=== PATIENT | female | born 1975 | race American Indian/Alaskan Native ===

== ENCOUNTER 2016-12-30 18:12 | Inpatient (IN) | payer OTHER ==
[2016-12-30 19:55] LABS: BASO # 0.1 K/uL (0.0-0.2); EOS # 0.4 K/uL (0.0-0.7); EOS % 5.2 % (0.0-4.0); HEMOGLOBIN 10.7 g/dL (12.0-16.0); LYMPH # 1.8 K/uL (1.0-4.3); LYMPH % 25.5 % (20.0-40.0); MEAN CORPUSCULAR HEMOGLOBIN 28.5 pg (27.0-31.0); MEAN CORPUSCULAR HGB CONC 33.2 g/dL (33.0-37.0); MEAN PLATELET VOLUME 10.3 fl (7.2-11.7); MONO # 0.6 K/uL (0.0-0.8); MONO % 7.8 % (0.0-10.0); NEUT # 4.3 K/uL (1.8-7.0); NEUT % 60.5 % (50.0-75.0); NRBC % 0.1 % (0.0-0.0); RBC 3.74 Mil/uL (3.80-5.20); RED CELL DISTRIBUTION WIDTH 13.4 % (11.5-14.5); WHITE BLOOD COUNT 7.1 K/uL (4.8-10.8)
[2016-12-30 20:08] LABS: ALT/SGPT 35 U/L (9-52); AST/SGOT 35 U/L (14-36); BILIRUBIN,DIRECT 0.2 mg/ml (0.0-0.4); BLOOD UREA NITROGEN 14 mg/dl (7-17); CALCIUM 8.5 mg/dL (8.4-10.2); GFR AFRICAN-AMERICAN > 60; GFR NON-AFRICAN AMERICAN > 60; URIC ACID 6.6 mg/Dl (2.2-7.5)
[2016-12-30 20:40] LABS: SQUAMOUS EPITHIAL 5 /hpf (0-5); URINE BACTERIA OCC (<OCC); URINE BILIRUBIN NEGATIVE (NEGATIVE); URINE BLOOD NEGATIVE (NEGATIVE); URINE CLARITY SLIGHTY-CLOUDY (Clear); URINE COLOR YELLOW (YELLOW); URINE GLUCOSE (UA) NEG (Normal); URINE HYALINE CAST >20 /hpf (0-2); URINE LEUKOCYTE ESTERASE NEG Leu/uL (Negative); URINE NITRATE NEGATIVE (NEGATIVE); URINE PROTEIN >=500 mg/dL (NEGATIVE); URINE UROBILINOGEN 0.2-1.0 mg/dL (0.2-1.0)
[2016-12-30 20:45] LABS: ALB/GLOB RATIO 0.9 (1.0-2.1)
[2016-12-30 20:49] LABS: INR 0.8 (0.9-1.2); PARTIAL THROMBOPLASTIN TIME 27.4 Seconds (25.6-37.1); PROTHROMBIN TIME 9.5 Seconds (9.8-13.1)
--- NOTE | 2016-12-30 21:27 | OBHP ---
Datetime: 12/30/2016 21:20 IP Adm Impression: , intrauterine ; No Active Labor; Intact Membranes IP Admit Plan: Admit to unit; Initiate labor induction protocol Admit Comment, IP Provider: The patient is a 41-year-old 1 para 0 estimated gestational age 36 weeks. Patient went to PMD's office and was noted to have elevated blood pressure. The cora ent was referred to [facility] FOR EVALUATION. PATIENT DENIES ANY HEADACHE BLURRED VISION ABDOMINA L PAIN. PATIENT REPORTS SWELLING OF THE LOWER EXTREMITIES 3 POUND WEIGHT GAIN. PATIENT REPORTS GOOD F ETAL MOVEMENT NO VAGINAL BLEEDING contractions OR LEAKAGE OF FLUID PAST MEDICAL HISTORY ASTHMA MEDICATIONS PULMICORT NO KNOWN DRUG ALLERGIES SOCIAL HISTORY DENIES ALCOHOL TOBACCO USE NOTED KNOWN DRUG ALLERGIES OBSTETRICAL HISTORY IVF PATIENT DENIES HEADACHE CHEST PAIN SHORTNESS OF BREATH PALPITATIONS NAUSEA VOMITING DIARRHEA CONST IPATION VAGINAL BLEEDING DYSURIA HEAT OR COLD INTOLERANCE SHE'S BRUISABILITY MUSCULOSKELETAL HILLS T ROCAR NEUROLOGICAL COMPLAINTS VITAL SIGNS STABLE AFEBRILE PHYSICAL EXAM SEE NOTES INTRAUTERINE AT 36 WEEKS ELEVATED BLOOD PRESSURE, PROTEINURIA MFM CONSULTATION OBTAINED AND RECOMMENDATION FOR DELIVERY MADE THE PATIENT TO GET STEROIDS, WILL MONITOR BLOOD PRESSURE, PATIENT TO BE STARTED ON LABETALOL 200 M G BY MOUTH 3 TIMES A DAY. WE DISCUSSED THE PLAN OF CARE WITH PATIENT THE PATIENT WAS INFORMED OF THE RISK OF PREMATURITY, RESPIRATORY ISSUES, POOR FEEDING, JAUNDICE AND UNFORESEEN COMPLICATION AFTER THO ROUGH DISCUSSION PATIENT AND PARTNER AGREE WITH PLAN OF CARE Pelvic Type - PN: Adequate Extremities - PN: Normal Abdomen - PN: Normal Back - PN: Normal Breast - PN: Not Done Lungs - PN: Normal Heart - PN: Normal Thyroid - PN: Normal Neurologic - PN: Normal HEENT - PN: Normal General - PN: Normal Weight - Estimated: a 6-1/2 pounds Presentation-Admit: Vertex FHR - Baseline A Provider: 145 Gestation - Est Wks by US: 36.0 EGA AdmitDate IP: 36.3 Vital Signs Provider: Reviewed IP Chief Complaint: Signs/Symptoms Gestational HTN NICHD Variability Prov Fetus A: Moderate 6-25bpm NICHD Accel Fetus A IP Provider: 15X15 FHR Category Provider Fetus A: Category I NICHD Decel Fetus A IP Provider: None Dilatation, Provider: 0 Effacement, Provider: 0 Station, Provider: -2 Genitourinary Exam: Normal DTRs - PN: Normal
[2016-12-30] MEDS ORDERED: Betamethasone Soluspan 30 mg/5mL Inj Susp IM ONE (21:30)
[2016-12-31 00:33] VITALS: RESP 16; TEMP 98.4; O2SAT 97
[2016-12-31] MEDS ORDERED: Labetalol 5 mg/ml Inj 20ML IVP STA ×2 (01:57→13:16)
[2016-12-31] MEDS: Lactated Ringer's 1,000 ML IV SCH ×2 (02:39→15:17)
[2016-12-31] MEDS ORDERED: Magnesium Sulfate 4 gm/100 ml 4 GM/100 ML BAG IV ONE (03:51)
[2016-12-31] MEDS ORDERED: Magnesium Sul 40GM/1L SW 40 GM/1,000 ML ML IV ONE ×2 (04:30→10:34)
--- NOTE | 2016-12-31 04:41 | OBPN ---
Datetime: 12/30/2016 21:20 FHR - Baseline A Provider: 145 Gestation - Est Wks by US: 36.0 Weight - Estimated: a 6-1/2 pounds Presentation-Admit: Vertex IP Progress Note Comment: Patient noted to have elevated blood pressures labetalol 20 mg pushed cora ent noted to continue with some elevated diastolic pressures patient asymptomatic denies headache bridget rred vision abdominal pain. We'll start magnesium sulfate for seizure prophylaxis Vital Signs Provider: Reviewed NICHD Accel Fetus A IP Provider: 15X15 FHR Category Provider Fetus A: Category I NICHD Variability Prov Fetus A: Moderate 6-25bpm Dilatation, Provider: 0 Effacement, Provider: 0 Station, Provider: -2 NICHD Decel Fetus A IP Provider: None
[2016-12-31] MEDS ORDERED: Oxytocin 30 units/LR 500ML 30 U/500 ML BAG IV ONE (08:52)
--- NOTE | 2016-12-31 08:55 | OBPN ---
Datetime: 12/31/2016 08:35 IP Progress Impression: Gest. HTN/PreEclampsia/Eclampsia IP Informed Consent Obtain: Section Delivery IP Progress Plan: Deliver- Section Contraction Comments Provider: q 2 - 4 mins FHR - Baseline A Provider: 120 IP Progress Note Comment: Patient evaluated, denies CEBALLOS, N/V, scletomatas, no pain with contractions. Patient's BP is ranging 150-180/90-100, has been given multiple rounds of PO labetalol and IV labeta lol overnight. Patient is on MgSO4, urine output is adequate about 100/hr. Patient is a severe pre-ec lamptic with uncontrolled BPs, remote from delivery. Cervidil removed, FT on exam. Discussed with pat charlene best mode of delivery is by - risks/benefits discussed, including risk of bleeding, in fection, damage to surrounding organs such as bowel bladder, ureters, uterus. Patient signed informed consent, Ancef to be given en route. Will stop Mg before , will re-start after an d then see how BPs are Vital Signs Provider: Reviewed; Within Normal Limits NICHD Accel Fetus A IP Provider: 15X15 NICHD Variability Prov Fetus A: Moderate 6-25bpm Dilatation, Provider: FT
[2016-12-31] MEDS ORDERED: ceFAZolin 2 GM in Sodium Chloride 0.9% 100 ML IVPB ONE (09:00)
[2016-12-31] MEDS ORDERED: Phenylephrine 10 mg/ml Inj ONE (09:07)
[2016-12-31] MEDS ORDERED: Morphine 5 mg/10 ml preservative-free Inj(Duramorph) ONE (09:07)
[2016-12-31] MEDS ORDERED: ePHEDrine 50 mg/ml Inj ONE (09:07)
[2016-12-31] MEDS ORDERED: Bisacodyl 5mg EC Tab PO PRN (10:24)
[2016-12-31] MEDS ORDERED: DiphenhydrAMINE 50 mg/ml Inj IVP PRN (10:46)
--- NOTE | 2016-12-31 10:57 | OBDS ---
DELIVERY PERSONNEL Delivery Doctor: Gini Avila MD Scrub Nurse: Vandana Couch Postal Superintendent: Kelly Lozano RNC Anesthesiologist: DR Eagle MATERNAL INFORMATION Delivery Anesthesia: Spinal Medications in Delivery: pitocin 20 units Placenta Cultured: No Maternal Complications: None Provider Comments: Surgeon: Dr. Avila Poultry Vaccinator: Dr. Bhagat Pre-op: Severe pre-eclampsia, AMA, IVF , at 36.3 wks remote from delive ry Surgery: Primary LTCS Post-operative: Same Findings: live male 5lbs 9oz, 9/9, clear fluid, cephalic, grossly nml tubes, ovaries, tubes , placenta Anesthesia: Spinal by Dr. Eagle EBL: 800mL UO:500mL Total input: 1800mL Complications:none Condition: stable Pathology: cord blood LABOR SUMMARY EDC: 01/24/2017 00:00 No. Babies in Womb: 1 Attempted: No Labor Anesthesia: None LABOR INFORMATION Cervical Ripening Agents: Cervidil Oxytocin: N/A Group B Beta Strep: Not Done MEMBRANES Membranes Rupture Method: Spontaneous Amniotic Fluid Color: Clear Amniotic Fluid Amount: None Amniotic Fluid Odor: Normal STAGES OF LABOR Stage 3 hrs: 0 Stage 3 min: 1 CSECTION DELIVERY Primary Indication: Other Other Primary Indication: Preeclpasia CSection Urgency: Non Elective CSection Incidence: Primary Labor: Labor Elective: Nonelective CSection Incision: Lower Uterine Transverse BABY A INFORMATION Infant Delivery Date/Time: 12/31/2016 09:38 Method of Delivery: Vaginal Born in Route : No : N/A Forceps: N/A Vacuum Extraction: N/A Shoulder Dystocia : No SHOULDER DYSTOCIA BABY A Delivery Date/Time: 12/31/2016 09:38 PRESENTATION/POSITION BABY A Presentation: Cephalic Cephalic Presentation: Vertex Breech Presentation: N/A PLACENTA INFORMATION BABY A Placenta Delivery Time : 12/31/2016 09:39 Placenta Method of Delivery: Expressed Placenta Status: Delivered INFORMATION BABY A Gestational Age at Delivery: 36.3 Gestational Status: Infant Outcome : Liveborn Infant Condition : Stable Sex: Male WEIGHT/LENGTH BABY A Infant Birthweight (gms): 2510 Weight (lb): 5 Weight (oz): 9 Length Inches: 19.00 Length cms: 48.3 CORD INFORMATION BABY A No. Cord Vessels: 3 Nuchal Cord : N/A Cord Blood Taken: Yes Infant Suction: Mouth; Nose
[2016-12-31 11:10] LABS: HEMOGLOBIN 10.2 g/dL (12.0-16.0); MEAN CELL VOLUME 86.5 fl (81.0-99.0); MEAN CORPUSCULAR HEMOGLOBIN 29.3 pg (27.0-31.0); MEAN CORPUSCULAR HGB CONC 33.9 g/dL (33.0-37.0); RBC 3.5 Mil/uL (3.80-5.20); RED CELL DISTRIBUTION WIDTH 13.9 % (11.5-14.5); WHITE BLOOD COUNT 7.2 K/uL (4.8-10.8)
[2016-12-31 11:20] LABS: BLOOD UREA NITROGEN 13 mg/dl (7-17); CALCIUM 7.9 mg/dL (8.4-10.2); GFR AFRICAN-AMERICAN > 60; GFR NON-AFRICAN AMERICAN > 60
[2016-12-31 20:17] VITALS: BMI 28.7
[2016-12-31] MEDS: Simethicone 80 mg Chewtab PO SCH (22:10)
[2017-01-01 06:35] LABS: BASO % 0.2 % (0.0-2.0); LYMPH % 6.5 % (20.0-40.0); MEAN CELL VOLUME 86.4 fl (81.0-99.0); MEAN CORPUSCULAR HEMOGLOBIN 28.5 pg (27.0-31.0); MEAN PLATELET VOLUME 10.2 fl (7.2-11.7); MONO # 0.9 K/uL (0.0-0.8); MONO % 5.7 % (0.0-10.0); NEUT # 13.2 K/uL (1.8-7.0); NEUT % 87.6 % (50.0-75.0); NRBC % 0.1 % (0.0-0.0); PLATELET COUNT 161 K/uL (130-400); RBC 3.49 Mil/uL (3.80-5.20); RED CELL DISTRIBUTION WIDTH 14.2 % (11.5-14.5); WHITE BLOOD COUNT 15.1 K/uL (4.8-10.8)
[2017-01-01 09:13] LABS: LYMPHOCYTE 7 % (20-50); MONOCYTE 5 % (0-10); NEUTROPHIL 88 % (42-75); PLATELET ESTIMATE NORMAL (NORMAL); TOTAL CELLS COUNTED 100
[2017-01-01 09:14] LABS: ANISOCYTOSIS SLIGHT; OVALOCYTES SLIGHT
[2017-01-01 09:15] LABS: LARGE PLATELETS PRESENT
[2017-01-01] MEDS: Multivitamin With Minerals Tab PO SCH (09:25)
[2017-01-01] MEDS: Simethicone 80 mg Chewtab PO SCH ×3 (10:19→21:18)
--- NOTE | 2017-01-01 19:03 | OBPPN ---
Datetime: 01/01/2017 08:57 PP Pain Prov: Within normal limits PP Nausea Prov: Denies PP Flatus Prov: Yes PP Breasts Prov: Normal PP Heart Prov: Normal PP Lungs Prov: Normal PP Abdomen/Uterus Prov: Normal PP Lochia Prov: Normal PP Vulva/Perineum Prov: Normal PP CVA Tenderness Prov: Normal PP Extremities Prov: Normal PP Comments Phys Exam Prov: INcision clean/dry/intact PP Impression Prov: Normal progression PP Plan Prov: Continue present management PP Progress Note Prov: Patient denies CP, no SOB, no N/V, tolerating PO diet, ambulating minimal, +f oley draining clear urine over 100/hr, no CEBALLOS, no Scletomatas, abdominal pain tolerable with meds, no flatus, mild lochia A/P POD #1 severe pre-eclamptic 1. Discontinue MgSO4, discontinue valencia. BPs 140s-160s/80s-90s. Tre continue Labetalol 200mg PO q8 . Labs nml 2. Reg diet 3. Encourage ambulation/ 4. Motrin/Percocet prn pain Vital Signs Provider PP: Reviewed; Within Normal Limits
[2017-01-02] MEDS: Simethicone 80 mg Chewtab PO SCH ×7 (04:00→22:26)
[2017-01-02] MEDS: Multivitamin With Minerals Tab PO SCH (09:49)
[2017-01-02 11:53] VITALS: PULSE 78
[2017-01-02] MEDS: Oxycodone/Acetaminophen 5/325 mg Tab PO PRN ×2 (14:40→20:24)
[2017-01-03] MEDS: Simethicone 80 mg Chewtab PO SCH ×2 (07:45→11:56)
[2017-01-03] MEDS: Oxycodone/Acetaminophen 5/325 mg Tab PO PRN (07:58)
[2017-01-03] MEDS: Multivitamin With Minerals Tab PO SCH (08:00)
--- NOTE | 2017-01-03 09:14 | OBDCSUM ---
Datetime: 01/03/2017 09:13 Discharged to, Provider: Home Follow up at, Provider: OB Disch Instr Activity: Normal activity Disch Instr Diet: Regular Discharge Instructions, Provider: Routine instructions given Discharge Diagnosis, Provider: Delivery Discharge Time: 01/03/2017 09:13 Follow up in weeks, Provider: this week Disch Referrals: None Contraception discussed, Prov: Yes Disch Activity Restrictions: No exercising; No sexual activity; Nothing in vagina - [place], miguel angel cohen Discharge Comment, Provider: Return to hospital if increased bleeding, fever, pain If BP>160/100, CEBALLOS/blurry vision Discharge Diagnosis Prov Other: Severe Pre-eclamptic
--- NOTE | 2017-01-03 09:15 | OBPPN ---
Datetime: 01/03/2017 09:11 PP Pain Prov: Within normal limits PP Nausea Prov: Denies PP Flatus Prov: Yes PP Breasts Prov: Normal PP Heart Prov: Normal PP Lungs Prov: Normal PP Abdomen/Uterus Prov: Normal PP Lochia Prov: Normal PP Vulva/Perineum Prov: Normal PP CVA Tenderness Prov: Normal PP Extremities Prov: Normal PP Comments Phys Exam Prov: Fundus firm under umbilicus INcision clean/dry/intact PP Impression Prov: Normal progression PP Plan Prov: Continue present management; Discharge PP Progress Note Prov: Patient denies CP, no SOB, no N/V, tolerating PO diet, ambulating/voiding wel l, mild lochia, abdominal pain tolerable with meds, +BM A/P POD #3 1. Patients BP = 130/80-150/90. WIll discharge patient home with Labetalol 200mg PO BID. Blood pre ssure precautions 2. Rest of discharge instructions reviewed 3. Discharge home Vital Signs Provider PP: Reviewed; Within Normal Limits
[2017-01-03] MEDS ORDERED: Oxycodone/Acetaminophen 5/325 mg Tab PO ONE (12:04)
[2017-01-03 12:31] VITALS: BP 173/101
--- NOTE | 2017-01-04 09:12 | OP ---
PROCEDURE DATE: 12/31/2016 PREOPERATIVE DIAGNOSES: 1. Severe preeclamptic remote from delivery with uncontrolled blood pressures. 2. Advanced maternal age. 2. In vitro fertilization . POSTOPERATIVE DIAGNOSES: 1. Severe preeclamptic remote from delivery with uncontrolled blood pressures. 2. Advanced maternal age. 2. In vitro fertilization . PROCEDURE: Low transverse section. SURGEON: Dr. Avila. SENIOR COLDFUSION DEVELOPER: Dr. Charlie Bhagat TYPE OF ANESTHESIA: Spinal. ANESTHESIA ADMINISTERED BY: Dr. Eagle. FINDINGS: White male infant, cephalic presentation, clear fluid, 5 pounds 9 ounces, 9 and 9 Apgars, grossly normal tubes,ovaries, placenta, and uterus. No nuchal cord. IV FLUID INTAKE: 1800 mL. ESTIMATED BLOOD LOSS: 800 mL. URINE OUTPUT: 500 mL, clear fluid. COMPLICATIONS: None. PATHOLOGY SPECIMEN: Cord blood. CONDITION: Stable. INDICATIONS: This is a 41-year-old G1, P0 at 36 weeks and 3 days IVF , severe preeclamptic, who presented to labor and delivery on the previous day with severely elevated pressures 160s-170s/90s-100s. The patient up to this point had not had any other presenting complaints or symptoms to indicate that. She could be starting to present with preeclampsia. The patient also exhibited proteinuria on presentation. The patient was given p.o. labetalol, which did little to control her blood pressures. She is also started on magnesium sulfate procedure prophylaxis. [place] [facility] [place] was recommended for delivery for the indications of severe preeclampsia. The patient was also given a dose of betamethasone steroids. The patient's blood pressure has continued to increase. She was given another dose of p.o. labetalol during the night and IV labetalol. In the morning, the patient had not made much progress and her blood pressure was at high as 180/100. The patient was asymptomatic during the entire time and it was discussed with the patient that she was remote from delivery with worsening pressures, it was advised to proceed with for delivery. The patient agrees to risks and benefits of procedure including risk of bleeding, infections, damage to surrounding organs such as bowel, bladder, ureter, and uterus. The patient verbalized understanding and signed an informed consent. DESCRIPTION OF PROCEDURE: The patient was taken to the OR, Ancef was given preoperatively, and SCDs are placed bilaterally. The patient was prepped and draped in a normal sterile fashion and dorsal supine position with leftward tilt. A Pfannenstiel skin incision was made with the scalpel and carried through to the underlying fascia with Bovie. Fascia was incised in the midline. Incisions are extended laterally with the Bovie. Anson clamps were used to tent up the inferior aspect of this incision, which was dissected off of the underlying pyramidalis muscle with the Bovie. In a similar fashion, we tended up the superior aspect of this incision, which we dissected the underlying rectus abdominus muscles with the Bovie. We the muscles bluntly at the midline. The peritoneum was identified with pickups and entered bluntly. The incision was extended superiorly and inferiorly. Good visualization of all underlying organs. The bladder flap was created with the Metzenbaum scissors and digitally. The lower uterine segment was incised in a transverse fashion with the scalpel and the uterine cavity was entered and uterine incision was extended manually. Clear fluid was noted. The delivered in cephalic presentation atraumatically followed by shoulder and rest of the atraumatically. Cord was clamped and cut. Mouth and nose were suctioned. The infant was handed off to the awaiting pediatric team. The placenta was extracted manually. Uterus was exteriorized cleared off all clots. Uterus was repaired with an 0 Vicryl suture and then a second imbricating incision was done with an 0 Monocryl suture. A small bleeding site was reinforced with 0 Vicryl stitch. Overall, the hysterotomy site appeared to be hemostatic. The uterus was returned to the abdomen. Gutters were cleared off all clots. The peritoneum was closed with 2-0 Monocryl. The muscle was reapproximated with a 2-0 Monocryl. The fascia was closed with an 0 Vicryl and small cutaneous fat was reapproximated with the plain gut suture. The skin was closed with 4-0 Monocryl. Sponge, lap, and needle counts were correct x4. The patient was taken to recovery room in stable condition with no other complications. Palma Avila MD
== END 2017-01-03 14:05 | disposition home or self-care (01) | DRG 766 ==
LOC: H.EROB2 18:12 → H.L&D 21:31 → H.OB/GYN 23:45 → H.L&D 12-31 00:15 → H.OB/GYN 01-01 10:41
PROVIDERS: ADMIT Obstetrics & Gynecology Gynecology; ATTEND Obstetrics & Gynecology Gynecology
PROC: 4A1HXCZ Monitoring of Products of Conception, Cardiac Rate, External Approach (ICD-10-PCS; 2016-12-30)
PROC: 10D00Z1 Extraction of Products of Conception, Low, Open Approach (ICD-10-PCS; principal; 2016-12-31)
DX: O60.14X0 Preterm labor third trimester with preterm delivery third trimester, not applicable or unspecified (principal); O14.14 Severe pre-eclampsia complicating childbirth; O13.4 Gestational [pregnancy-induced] hypertension without significant proteinuria, complicating childbirth; Z3A.36 36 weeks gestation of pregnancy; O09.513 Supervision of elderly primigravida, third trimester; Z37.0 Single live birth